=== PATIENT | female | born 1985 | race Caucasian/White ===

== ENCOUNTER 2020-09-16 12:46 | Emergency (ER) | payer MEDICAID ==
[~2020-09-16] VITALS: Ht 157 cm; Wt 68.0 kg
[~2020-09-16 12:46] MED LIST: AC325T PO; CEPH500C PO; CRB200T PO; NITR100C3 PO; PREN-115 PO
--- NOTE | 2020-09-16 13:35 | ED Chest Pain ---
General Chief Complaint: Chest Pain Stated Complaint: COVID +, CP, SORE THROAT Nursing Triage Note: ARRIVED VIA AMB TO ROOM [address] [facility]. TESTED POSTIVE ON 09-07 AND HAS HAD A SORE THROAT AND CHEST PAIN WITH COUGHING SINCE. Nursing Sepsis Screen: No Definite Risk Source: patient Exam Limitations: no limitations History of Present Illness Date Seen by Provider: Sep 16, 2020 Time Seen by Provider: 13:33 Initial Comments Tested positive for Covid on 09/07/2020. Has had sore throat and chest pain since then believes is related to coughing. Timing/Duration: constant Severity/Quality: moderate Radiation: no radiation Activities at Onset: none ASA po FACILITY MAINTENANCE HELPER: No NTG SL FACILITY MAINTENANCE HELPER: No Allergies and Home Medications Allergies Coded Allergies: Penicillins (Unverified Allergy, Unknown, 05/22/13) Patient states she was told to never take it because mother is allergic to it latex (Verified Allergy, 05/10/13) Home Medications No Active Prescriptions or Reported Meds Patient Home Medication List Home Medication List Reviewed: Yes Review of Systems Review of Systems Constitutional: see HPI EENTM: No Symptoms Reported Respiratory: See HPI, Cough Cardiovascular: See HPI, Chest Pain Gastrointestinal: No Symptoms Reported Genitourinary: No Symptoms Reported Musculoskeletal: no symptoms reported Skin: no symptoms reported Psychiatric/Neurological: No Symptoms Reported Endocrine: No Symptoms Reported Hematologic/Lymphatic: No Symptoms Reported Past Mwfyltv-Mrbliz-Knhszr Hx Patient Social History Alcohol Use: Occasionally Uses Smoking Status: Current Everyday Smoker Recent Infectious Disease Expo: No Recent Hopitalizations: No Seasonal Allergies Seasonal Allergies: No Past Medical History Respiratory: No Cardiac: No Neurological: No Seizure Disorder : 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 oz. 86.147482lk; 27.00 BMI Method: General Appearance: No Apparent Distress, WD/WN Respiratory: No Accessory Muscle Use, No Respiratory Distress Gastrointestinal: Normal Bowel Sounds, Non Tender, Soft Extremity: Normal Capillary Refill, Normal Inspection Neurologic/Psychiatric: Alert, Oriented x3 Skin: Normal Color, Warm/Dry Progress/Results/Core Measures Results/Orders Lab Results Laboratory Tests Test 09/16/20 13:23 09/16/20 13:56 Range/Units Group A Streptococcus Screen NEGATIVE NEGATIVE White Blood Count 8.2 4.3-11.0 10^3/uL Red Blood Count 4.90 3.80-5.11 10^6/uL Hemoglobin 14.2 11.5-16.0 g/dL Hematocrit 43 35-52 % Mean Corpuscular Volume 88 80-99 fL Mean Corpuscular Hemoglobin 29 25-34 pg Mean Corpuscular Hemoglobin Concent 33 32-36 g/dL Red Cell Distribution Width 12.3 10.0-14.5 % Platelet Count 281 130-400 10^3/uL Mean Platelet Volume 10.0 9.0-12.2 fL Immature Granulocyte % (Auto) 0 % Neutrophils (%) (Auto) 65 42-75 % Lymphocytes (%) (Auto) 24 12-44 % Monocytes (%) (Auto) 9 0-12 % Eosinophils (%) (Auto) 2 0-10 % Basophils (%) (Auto) 0 0-10 % Neutrophils # (Auto) 5.3 1.8-7.8 10^3/uL Lymphocytes # (Auto) 2.0 1.0-4.0 10^3/uL Monocytes # (Auto) 0.7 0.0-1.0 10^3/uL Eosinophils # (Auto) 0.1 0.0-0.3 10^3/uL Basophils # (Auto) 0.0 0.0-0.1 10^3/uL Immature Granulocyte # (Auto) 0.0 0.0-0.1 10^3/uL D-Dimer <= 0.27 0.00-0.49 UG/ML Sodium Level 141 135-145 MMOL/L Potassium Level 3.7 3.6-5.0 MMOL/L Chloride Level 108 H 98-107 MMOL/L Carbon Dioxide Level 24 21-32 MMOL/L Anion Gap 9 5-14 MMOL/L Blood Urea Nitrogen 9 7-18 MG/DL Creatinine 0.62 0.60-1.30 MG/DL Estimat Glomerular Filtration Rate > 60 BUN/Creatinine Ratio 15 Glucose Level 90 70-105 MG/DL Calcium Level 8.8 8.5-10.1 MG/DL Corrected Calcium 8.5 8.5-10.1 MG/DL Total Bilirubin 0.4 0.1-1.0 MG/DL Aspartate Amino Transf (AST/SGOT) 27 5-34 U/L Alanine Aminotransferase (ALT/SGPT) 33 0-55 U/L Alkaline Phosphatase 41 40-136 U/L C-Reactive Protein High Sensitivity 0.05 0.00-0.50 MG/DL Total Protein 7.7 6.4-8.2 GM/DL Albumin 4.4 3.2-4.5 GM/DL My Orders Orders - WOODROW MURPHY APRN Hs C Reactive Protein (09/16/20 13:31) Fibrin Degradation Products (09/16/20 13:31) Rapid Strep A Screen (09/16/20 13:31) Cbc With Automated Diff (09/16/20 13:31) Comprehensive Metabolic Panel (09/16/20 13:31) Chest 1 View, Ap/Pa Only (09/16/20 13:31) Ekg Tracing (09/16/20 13:31) Vital Signs/I&O 09/16/20 13:15 Temp 37.0 Pulse 93 Resp 16 B/P (MAP) 130/87 (101) Pulse Ox 100 O2 Delivery Room Air Blood Pressure Mean: 101 Departure Impression Primary Impression: COVID-19 Disposition: 01 HOME, SELF-CARE Condition: Stable Departure-Patient Inst. Decision time for Depature: 14:34 Referrals: MACARIO VARELA DO (PCP/Family) Primary Care Physician Patient Instructions: Coronavirus Disease 2019 (COVID-19) ED Add. Discharge Instructions: 1. Return to ER for any worsening. Tylenol and ibuprofen for pain or fever control. All discharge instructions reviewed with patient and/or family. Voiced understanding. Scripts No Active Prescriptions or Reported Meds Work/School Note: Work Release Form Date Seen in the Emergency Department: Sep 16, 2020 WOODROW MURPHY APRN Sep 16, 2020 13:34
[2020-09-16 14:05] LABS: BASOPHILS % (AUTO) 0 % (0-10); EOSINOPHILS # (AUTO) 0.1 10^3/uL (0.0-0.3); EOSINOPHILS % (AUTO) 2 % (0-10); HEMATOCRIT 43 % (35-52); HEMOGLOBIN 14.2 g/dL (11.5-16.0); LYMPHOCYTES % (AUTO) 24 % (12-44); MEAN CORPUSCULAR HEMOGLOBIN 29 pg (25-34); MEAN CORPUSCULAR HGB CONC 33 g/dL (32-36); MEAN CORPUSCULAR VOLUME 88 fL (80-99); MONOCYTES # (AUTO) 0.7 10^3/uL (0.0-1.0); MONOCYTES % (AUTO) 9 % (0-12); NEUTROPHILS # (AUTO) 5.3 10^3/uL (1.8-7.8); NEUTROPHILS % (AUTO) 65 % (42-75); PLATELET COUNT 281 10^3/uL (130-400); WHITE BLOOD COUNT 8.2 10^3/uL (4.3-11.0)
[2020-09-16 14:15] LABS: ALBUMIN 4.4 GM/DL (3.2-4.5); CHLORIDE 108 MMOL/L (98-107); POTASSIUM 3.7 MMOL/L (3.6-5.0); SODIUM 141 MMOL/L (135-145)
--- NOTE | 2020-09-16 14:15 | Diagnostic Imaging Report ---
Indication: Sore throat, chest pain, cough. Findings: No focal infiltrate. The lung volumes normal. There is no failure, effusion or pneumothorax. Impression: Normal frontal chest x-ray. Dictated by: Dictated on workstation # [id number]
[2020-09-16 14:16] LABS: CALCIUM 8.8 MG/DL (8.5-10.1)
[2020-09-16 14:17] LABS: GLUCOSE 90 MG/DL (70-105)
[2020-09-16 14:18] LABS: TOTAL PROTEIN 7.7 GM/DL (6.4-8.2)
[2020-09-16 14:19] LABS: BILIRUBIN,TOTAL 0.4 MG/DL (0.1-1.0); CARBON DIOXIDE 24 MMOL/L (21-32)
[2020-09-16 14:21] LABS: ALKALINE PHOSPHATASE 41 U/L (40-136); CREATININE SERUM 0.62 MG/DL (0.60-1.30); GFR ESTIMATED > 60
[2020-09-16 14:22] LABS: BUN/CREATININE RATIO 15
[2020-09-16 14:24] LABS: ALANINE AMINOTRANSFERASE 33 U/L (0-55)
[2020-09-16 14:45] VITALS: BP 130/87
== END 2020-09-16 14:45 | disposition home or self-care (01) ==
LOC: EDUNIT# 12:46 → ER 12:48
DX: U07.1 COVID-19 (principal); F17.200 Nicotine dependence, unspecified, uncomplicated; Z88.0 Allergy status to penicillin; Z91.040 Latex allergy status
CPT/HCPCS: 36415; 71045; 80053; 85025; 85379; 86141; 87430; 93005

== ENCOUNTER 2021-09-07 19:27 | Emergency (ER) | payer MEDICAID ==
[~2021-09-07] VITALS: Ht 146 cm; Wt 73.0 kg
--- NOTE | 2021-09-07 19:58 | ED General ---
General Chief Complaint: Dizziness/Syncope Stated Complaint: DIZZINESS Source of Information: Patient Exam Limitations: No Limitations (WOODROW MURPHY APRN) History of Present Illness Date Seen by Provider: Sep 07, 2021 Time Seen by Provider: 19:58 Initial Comments To ER with dizziness that began 1 hour prior to arrival. It then developed some nausea. The dizziness is now gone, nausea is improving. She needs a note for work because she works at night. Timing/Duration: 1 Hour Severity: Moderate Associated Systoms: Denies Symptoms (WOODROW MURPHY APRN) Allergies and Home Medications Allergies Coded Allergies: Penicillins (Unverified Allergy, Unknown, 05/22/13) Patient states she was told to never take it because mother is allergic to it latex (Verified Allergy, Unknown, 09/16/20) Patient Home Medication List Home Medication List Reviewed: Yes (WOODROW MURPHY APRN) No Active Prescriptions or Reported Meds Review of Systems Review of Systems Constitutional: see HPI EENTM: see HPI Respiratory: no symptoms reported Cardiovascular: no symptoms reported Genitourinary: no symptoms reported Musculoskeletal: see HPI Skin: no symptoms reported Psychiatric/Neurological: No Symptoms Reported Hematologic/Lymphatic: No Symptoms Reported Immunological/Allergic: no symptoms reported (WOODROW MURPHY APRN) Past Zockflm-Ooursu-Qxmikg Hx Patient Social History Tobacco Use?: Yes Tobacco type used: Cigarettes Smoking Status: Current Everyday Smoker Use of E-Cig and/or Vaping dev: No Substance use?: No Alcohol Use?: Yes Alcohol type: Hard Liquor Alcohol Frequency: Couple times a week Pt feels they are or have been: No (WOODROW MURPHY APRN) Immunizations Up To Date Influenza Vaccine Up-to-Date: Yes; Up-to-Date First/Initial COVID19 Vaccinat: 2020 Second COVID19 Vaccination [place]: 2020 COVID19 Vaccine Shoe Repair Supervisor: MODERNIlir (WOODROW MURPHY APRN) Seasonal Allergies Seasonal Allergies: No (WOODROW MURPHY APRN) Past Medical History Surgery/Hospitalization HX: DENIES Respiratory: No Cardiac: No Neurological: No Seizure Disorder 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 oz. 86.128738zo; 27.00 BMI Method: General Appearance: No Apparent Distress, WD/WN, Other (no nystagmus, ambulates to room 5 without abnormal gait. ) Eyes: Bilateral Eye Normal Inspection, Bilateral Eye PERRL, Bilateral Eye EOMI HEENT: PERRL/EOMI, TMs Normal Neck: Full Range of Motion, Normal Inspection Respiratory: No Accessory Muscle Use, No Respiratory Distress Cardiovascular: Regular Rate, Rhythm, Normal Peripheral Pulses Gastrointestinal: Normal Bowel Sounds, Non Tender, Soft Extremity: Normal Capillary Refill, Normal Inspection Neurologic/Psychiatric: Alert, Oriented x3 Skin: Normal Color, Warm/Dry (WOODROW MURPHY APRN) Progress/Results/Core Measures Suspected Sepsis SIRS Temperature: Pulse: Respiratory Rate: Blood Pressure / Mean: (WOODROW MURPHY APRN) Results/Orders Medications Given in ED Current Medications Medications Dose Ordered Sig/Naina Route Start Time Stop Time Status Last Admin Dose Admin Meclizine HCl 25 mg ONCE ONCE PO 09/07/21 20:00 09/07/21 20:01 DC 09/07/21 20:08 25 MG Ondansetron HCl 4 mg ONCE ONCE PO 09/07/21 20:15 09/07/21 20:16 DC 09/07/21 20:12 4 MG (SHREYAS BOB DO) Vital Signs/I&O 09/07/21 19:37 Temp 36.3 Pulse 79 Resp 18 B/P (MAP) 134/77 (96) Pulse Ox 100 O2 Delivery Room Air (SHREYAS BOB DO) Vital Signs/I&O Capillary Refill : (WOODROW MURPHY APRN) Departure Impression Primary Impression: Dizziness Disposition: 01 HOME, SELF-CARE Condition: Stable Departure-Patient Inst. Decision time for Depature: 19:58 (WOODROW MURPHY APRN) Referrals: MACARIO VARELA DO (PCP/Family) Primary Care Physician Patient Instructions: Dizziness, Adult ED Add. Discharge Instructions: 1. Return to ER for any concerns 2. Follow-up with your doctor next week 3. All discharge instructions reviewed with patient and/or family. Voiced unde rstanding. Scripts No Active Prescriptions or Reported Meds Work/School Note: Work Release Form Date Seen in the Emergency Department: Sep 07, 2021 Return to Work: Sep 08, 2021 ATTENDING PHYSICIAN NOTE: I WAS PHYSICALLY PRESENT ER PHYSICIAN WHEN THIS PATIENT WAS IN ER, BUT I WAS NOT INVOLVED IN ANY DECISION MAKING OR ANY CARE OF THIS PATIENT. (SHREYAS BOB DO) WOODROW MURPHY APRN Sep 07, 2021 19:58 SHREYAS BOB DO Sep 07, 2021 20:23
[2021-09-07] MEDS ORDERED: MECLIZINE 25 MG (ANTIVERT) TAB PO ONE (20:00)
[2021-09-07] MEDS ORDERED: ONDANSETRON 4 MG (ZOFRAN) ORAL DISSOLVE TAB PO ONE (20:15)
[2021-09-07 20:17] VITALS: BP 114/68
== END 2021-09-07 20:18 | disposition home or self-care (01) ==
LOC: EDUNIT# 19:27 → ER 19:28
DX: R42 Dizziness and giddiness (principal); F17.210 Nicotine dependence, cigarettes, uncomplicated; Z91.040 Latex allergy status
CPT/HCPCS: 99283

== ENCOUNTER 2021-11-30 18:44 | Emergency (ER) | payer MEDICAID ==
[~2021-11-30] VITALS: Ht 146 cm; Wt 74.0 kg
[2021-11-30 19:11] VITALS: BP 130/92
--- NOTE | 2021-11-30 19:19 | ED Abdominal Pain ---
General Chief Complaint: Abdominal/GI Problems Stated Complaint: NAUSEOUS Nursing Triage Note: C/O INTERMITTANT NAUSEA TODAY. Source of Information: Patient Exam Limitations: No Limitations History of Present Illness Date Seen by Provider: November 30, 2021 Time Seen by Provider: 19:17 Initial Comments Patient is a 35-year-old female who presents ED with intermittent nausea. Symptoms started this morning. She states she feels nauseous throughout the day. This appears to be intermittent. Not associated with food. She denies of any other complaints such as abdominal pain, chest pain, cough, sore throat, ear pain, vomiting, diarrhea, dysuria, back pain, lower extremity swelling, rash, chest pain, vaginal bleeding, vaginal discharge. She does have a IUD. Not concern for . No urinary symptoms. No known medical problems. She states one of her other children at home came down with a possible GI infection. Patient denies taking medication at home. Allergies and Home Medications Allergies Coded Allergies: Penicillins (Unverified Allergy, Unknown, 05/22/13) Patient states she was told to never take it because mother is allergic to it latex (Verified Allergy, Unknown, 09/16/20) Patient Home Medication List Home Medication List Reviewed: Yes No Active Prescriptions or Reported Meds Review of Systems Review of Systems Constitutional: No chills, No diaphoresis, No fever, No malaise, No weakness EENTM: No Blurred Vision, No Eye Pain Respiratory: Denies Cough, Denies Orthopnea, Denies Shortness of Air Cardiovascular: Denies Chest Pain Gastrointestinal: Denies Abdomen Distended, Denies Abdominal Pain, Denies Constipated, Denies Diarrhea; Nausea; Denies Vomiting Genitourinary: Denies Discharge, Denies Drainage, Denies Frequency Musculoskeletal: No back pain, No joint pain Psychiatric/Neurological: Denies Anxiety, Denies Depressed All Other Systems Reviewed Negative Unless Noted: Yes Past Jhayrcl-Rlncvh-Yilcrf Hx Patient Social History Tobacco Use?: Yes Tobacco type used: Cigarettes Substance use?: No Alcohol Use?: Yes Alcohol Frequency: Once in a while Pt feels they are or have been: No Immunizations Up To Date First/Initial COVID19 Vaccinat: 2020 Second COVID19 Vaccination [place]: 2020 COVID19 Vaccine Yeast Maker: MODERNIlir Seasonal Allergies Seasonal Allergies: No Past Medical History Surgery/Hospitalization HX: DENIES Respiratory: No Cardiac: No Neurological: No Seizure Disorder 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 oz. 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, no motor/sensory deficits, alert, normal mood/affect, oriented x 3 Skin: normal color, warm/dry Progress/Results/Core Measures Results/Orders Lab Results Laboratory Tests Test 11/30/21 19:16 Range/Units Urine Color YELLOW Urine Clarity CLEAR Urine pH 6.5 5-9 Urine Specific [place] <=1.005 1.016-1.022 Urine Protein NEGATIVE NEGATIVE Urine Glucose (UA) NEGATIVE NEGATIVE Urine Ketones NEGATIVE NEGATIVE Urine Nitrite NEGATIVE NEGATIVE Urine Bilirubin NEGATIVE NEGATIVE Urine Urobilinogen 1.0 < = 1.0 MG/DL Urine Leukocyte Esterase NEGATIVE NEGATIVE Urine RBC (Auto) NEGATIVE NEGATIVE Urine RBC 0-2 /HPF Urine WBC 0-2 /HPF Urine Squamous Epithelial Cells 0-2 /HPF Urine Renal Epithelial Cells NONE /HPF Urine Crystals NONE /LPF Urine Leucine Crystals /LPF Urine Bacteria NEGATIVE /HPF Urine Casts NONE /LPF Urine Mucus NEGATIVE /LPF Urine Culture Indicated NO Urine Test NEGATIVE NEGATIVE My Orders Orders - VINEET MCMULLEN Ua Culture If Indicated (11/30/21 19:11) Hcg,Qualitative Urine (11/30/21 19:11) Ondansetron Oral Dissolve Tab (Zofran (11/30/21 19:30) Medications Given in ED Current Medications Medications Dose Ordered Sig/Naina Route Start Time Stop Time Status Last Admin Dose Admin Ondansetron HCl 4 mg ONCE ONCE PO 11/30/21 19:30 11/30/21 19:31 DC 11/30/21 19:22 4 MG Vital Signs/I&O 11/30/21 19:11 Temp 36.2 Pulse 84 Resp 16 B/P (MAP) 130/92 (105) Pulse Ox 99 O2 Delivery Room Air Blood Pressure Mean: 105 Departure Communication (PCP) Patient appears in no acute distress. She has no complaints besides nausea. Exam benign. She was given Zofran. Patient appears well and nontoxic. Stable vital signs. Urinalysis negative for infection and or . Discussed with patient she has no other concerning symptoms or any signs of potential surgical or infectious etiology to distinguish the cause of her nausea. She has been able to eat or drink. Before discharge she was requesting a work note for today. [place] like she was requesting a work note. If any symptoms of chest pain abdominal pain vomiting diarrhea fever or to return back to ED for further evaluation. Impression Primary Impression: Nausea alone Disposition: HOME, SELF-CARE Condition: Stable Departure-Patient Inst. Decision time for Depature: 19:24 Referrals: MACARIO VARELA DO (PCP/Family) Primary Care Physician Patient Instructions: No Instuctions Given Scripts No Active Prescriptions or Reported Meds Work/School Note: Work Release Form Date Seen in the Emergency Department: November 30, 2021 Return to Work: December 01, 2021 VINEET MCMULLEN November 30, 2021 19:19
[2021-11-30 19:25] LABS: BILIRUBIN,URINE NEGATIVE (NEGATIVE); CLARITY,URINE CLEAR; COLOR,URINE YELLOW; GLUCOSE, URINE (UA) NEGATIVE (NEGATIVE); KETONES,URINE NEGATIVE (NEGATIVE); LEUKOCYTE ESTERASE ,URINE NEGATIVE (NEGATIVE); NITRITE,URINE NEGATIVE (NEGATIVE); PH,URINE 6.5 (5-9); PROTEIN,URINE NEGATIVE (NEGATIVE)
[2021-11-30] MEDS ORDERED: ONDANSETRON 4 MG (ZOFRAN) ORAL DISSOLVE TAB PO ONE (19:30)
[2021-11-30 19:34] LABS: BACTERIA,URINE NEGATIVE /HPF; RBC,URINE 0-2 /HPF; SQUAMOUS EPITHELIAL CELL,UR 0-2 /HPF; WBC,URINE 0-2 /HPF
== END 2021-11-30 19:30 | disposition home or self-care (01) ==
LOC: EDUNIT# 18:44 → ER 18:48
DX: R11.0 Nausea (principal); F17.210 Nicotine dependence, cigarettes, uncomplicated; Z97.5 Presence of (intrauterine) contraceptive device; Z32.02 Encounter for pregnancy test, result negative
CPT/HCPCS: 81000; 84703; 99283

== ENCOUNTER 2022-01-17 20:31 | Emergency (ER) | payer MEDICAID ==
[~2022-01-17] VITALS: Ht 146 cm; Wt 81.6 kg
[2022-01-17 20:57] LABS: BILIRUBIN,URINE NEGATIVE (NEGATIVE); CLARITY,URINE CLOUDY; COLOR,URINE YELLOW; GLUCOSE, URINE (UA) NEGATIVE (NEGATIVE); KETONES,URINE NEGATIVE (NEGATIVE); LEUKOCYTE ESTERASE ,URINE NEGATIVE (NEGATIVE); NITRITE,URINE NEGATIVE (NEGATIVE); PROTEIN,URINE NEGATIVE (NEGATIVE)
[2022-01-17 21:04] LABS: BACTERIA,URINE FEW /HPF; WBC,URINE 0-2 /HPF
[2022-01-17 21:08] LABS: AMPHETAMINE SCREEN, URINE NEGATIVE (NEGATIVE); BARBITURATE SCREEN URINE NEGATIVE (NEGATIVE); BENZODIAZEPINES SCREEN URINE NEGATIVE (NEGATIVE); CANNABINOID SCREEN, URINE NEGATIVE (NEGATIVE); COCAINE SCREEN URINE NEGATIVE (NEGATIVE); METHADONE STAT NEGATIVE (NEGATIVE); OPIATE SCREEN URINE NEGATIVE (NEGATIVE); OXYCODONE STAT NEGATIVE (NEGATIVE); PROPOXYPHENE STAT NEGATIVE (NEGATIVE); TRICYCLIC ANTIDEPRESSANTS SCRE NEGATIVE (NEGATIVE)
[2022-01-17 21:16] LABS: BASOPHILS # (AUTO) 0.1 10^3/uL (0.0-0.1); BASOPHILS % (AUTO) 1 % (0-10); MEAN PLATELET VOLUME 10.5 fL (9.0-12.2)
[2022-01-17 21:18] LABS: EOSINOPHILS # (AUTO) 0.2 10^3/uL (0.0-0.3); EOSINOPHILS % (AUTO) 2 % (0-10); HEMATOCRIT 38 % (35-52); HEMOGLOBIN 12.7 g/dL (11.5-16.0); LYMPHOCYTES # (AUTO) 3.5 10^3/uL (1.0-4.0); LYMPHOCYTES % (AUTO) 29 % (12-44); MEAN CORPUSCULAR HEMOGLOBIN 29 pg (25-34); MEAN CORPUSCULAR HGB CONC 33 g/dL (32-36); MEAN CORPUSCULAR VOLUME 85 fL (80-99); MONOCYTES # (AUTO) 0.8 10^3/uL (0.0-1.0); MONOCYTES % (AUTO) 7 % (0-12); NEUTROPHILS # (AUTO) 7.4 10^3/uL (1.8-7.8); NEUTROPHILS % (AUTO) 62 % (42-75); PLATELET COUNT 265 10^3/uL (130-400)
[2022-01-17 21:30] LABS: ALBUMIN 3.8 GM/DL (3.2-4.5); POTASSIUM 3.5 MMOL/L (3.6-5.0)
[2022-01-17 21:31] LABS: CALCIUM 8.9 MG/DL (8.5-10.1)
[2022-01-17 21:32] LABS: TOTAL PROTEIN 6.9 GM/DL (6.4-8.2)
[2022-01-17 21:34] LABS: BILIRUBIN,TOTAL 0.3 MG/DL (0.1-1.0)
[2022-01-17 21:36] LABS: CREATININE SERUM 0.68 MG/DL (0.60-1.30)
--- NOTE | 2022-01-17 21:42 | ED Abdominal Pain ---
General Chief Complaint: Abdominal/GI Problems Stated Complaint: STOMACH PAIN Nursing Triage Note: PT AMBULATORY TO ROOM. 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 PT STATES THE HEADACHE IS NOT OUT OF THE USUAL FOR HER. PT DESCRIBES ABD PAIN A MILD CRAMPY FEELING Source of Information: Patient History of Present Illness Date Seen by Provider: Jan 17, 2022 Time Seen by Provider: 20:43 Initial Comments PT ARRIVES VIA POV FROM HOME STATES 35 MINUTES AGO, SHE BEGAN HAVING UPPER ABDOMINAL CRAMPING--RATES PAIN 6/10 SHE ALSO DEVELOPED A HEADACHE AT THE SAME TIME--RATES THIS PAIN 5/10--HAS FREQUENT HEADACHES AND THIS IS NO DIFFERENT THAN NORMAL HAS SLIGHT NAUSEA, NO VOMITING HAD NORMAL BM YESTERDAY, NO BM TODAY. NO FEVER ATE DINNER AROUND [phone]--[employer], AND [employer]. WENT FOR SHORT WALK AND WHEN SHE FINISHED HER WALK SHE STARTED HAVING THESE SYMPTOMS SO CAME STRAIGHT HERE HAS NOT TAKEN ANYTHING FOR HER SYMPTOMS WANTING A DR'S NOTE FOR WORK SOON SHE ARRIVES--SUPPOSED TO WORK [employer]. NO HISTORY OF SIMILAR NO PRIOR GI, OR OR FILM HISTORIAN PROBLEMS OR SURGERIES NO CHRONIC ILLNESSES AND DOES NOT TAKE ANY DAILY MEDICATIONS FORMER SMOKER, RARE ETOH ( NONE RECENTLY) AND NO DRUG USE LMP--8 YEARS AGO, HAS IUD IN PLACE SINCE THEN PT HAS HAD COVID-19 VACCINE X 2, FLU VACCINE X 1 PCP: [facility] Allergies and Home Medications Allergies Coded Allergies: Penicillins (Unverified Allergy, Unknown, 05/22/13) Patient states she was told to never take it because mother is allergic to it latex (Verified Allergy, Unknown, 09/16/20) Patient Home Medication List Home Medication List Reviewed: Yes No Active Prescriptions or Reported Meds Review of Systems Review of Systems Constitutional: no symptoms reported EENTM: No Symptoms Reported Respiratory: No Symptoms Reported Cardiovascular: No Symptoms Reported Gastrointestinal: See HPI, Abdominal Pain; Denies Constipated, Denies Diarrhea; Nausea; Denies Vomiting Genitourinary: No Symptoms Reported Musculoskeletal: no symptoms reported Skin: no symptoms reported Psychiatric/Neurological: See HPI Endocrine: No Symptoms Reported Hematologic/Lymphatic: No Symptoms Reported Past Kdqauww-Zrzlfd-Kirvvb Hx Patient Social History Tobacco Use?: Yes Smoking Status: Former Smoker Use of E-Cig and/or Vaping dev: No Substance use?: No Alcohol Use?: Yes Alcohol Frequency: Once in a while Immunizations Up To Date Influenza Vaccine Up-to-Date: Yes; Up-to-Date First/Initial COVID19 Vaccinat: 2020 Second COVID19 Vaccination [place]: 2020 Seasonal Allergies Seasonal Allergies: No Past Medical History Surgery/Hospitalization HX: DENIES Surgeries: No Respiratory: No Cardiac: No Neurological: No : No 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 oz. 86.396206kp; 38.00 BMI Method: General Appearance: WD/WN, no apparent distress, obese, other (WALKS UPRIGHT AND MOVES QUICKLY WITHOUT DIFFICULTY. DOES NOT APPEAR TO BE ILL OR IN ANY DISCOMFORT OR DISTRESS. PLAYING/TEXTING ON PHONE) HEENT: PERRL/EOMI, normal ENT inspection, TMs normal, pharynx normal Neck: non-tender, full range of motion, supple, normal inspection Respiratory: normal breath sounds, no respiratory distress, no accessory muscle use Cardiovascular: regular rate, rhythm, no murmur Gastrointestinal: normal bowel sounds, soft, no organomegaly, no pulsatile mass; No distended, No guarding, No rebound; tenderness (VERY MINIMAL PERIUMBILICAL TENDERNESS. 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, no motor/sensory deficits, alert, normal mood/affect, oriented x 3 Skin: normal color, warm/dry Progress/Results/Core Measures Results/Orders Lab Results Laboratory Tests Test 01/17/22 20:55 01/17/22 21:14 Range/Units Urine Color YELLOW Urine Clarity CLOUDY Urine pH 6.0 5-9 Urine Specific [place] 1.020 1.016-1.022 Urine Protein NEGATIVE NEGATIVE Urine Glucose (UA) NEGATIVE NEGATIVE Urine Ketones NEGATIVE NEGATIVE Urine Nitrite NEGATIVE NEGATIVE Urine Bilirubin NEGATIVE NEGATIVE Urine Urobilinogen 1.0 < = 1.0 MG/DL Urine Leukocyte Esterase NEGATIVE NEGATIVE Urine RBC (Auto) NEGATIVE NEGATIVE Urine RBC NONE /HPF Urine WBC 0-2 /HPF Urine Squamous Epithelial Cells 5-10 /HPF Urine Renal Epithelial Cells NONE /HPF Urine Crystals NONE /LPF Urine Bacteria FEW H /HPF Urine Casts NONE /LPF Urine Mucus NEGATIVE /LPF Urine Culture Indicated NO Urine Opiates Screen NEGATIVE NEGATIVE Urine Oxycodone Screen NEGATIVE NEGATIVE Urine Methadone Screen NEGATIVE NEGATIVE Urine Propoxyphene Screen NEGATIVE NEGATIVE Urine Barbiturates Screen NEGATIVE NEGATIVE Ur Tricyclic Antidepressants Screen NEGATIVE NEGATIVE Urine Phencyclidine Screen NEGATIVE NEGATIVE Urine Amphetamines Screen NEGATIVE NEGATIVE Urine Methamphetamines Screen NEGATIVE NEGATIVE Urine Benzodiazepines Screen NEGATIVE NEGATIVE Urine Cocaine Screen NEGATIVE NEGATIVE Urine Cannabinoids Screen NEGATIVE NEGATIVE White Blood Count 12.0 H 4.3-11.0 10^3/uL Red Blood Count 4.46 3.80-5.11 10^6/uL Hemoglobin 12.7 11.5-16.0 g/dL Hematocrit 38 35-52 % Mean Corpuscular Volume 85 80-99 fL Mean Corpuscular Hemoglobin 29 25-34 pg Mean Corpuscular Hemoglobin Concent 33 32-36 g/dL Red Cell Distribution Width 12.8 10.0-14.5 % Platelet Count 265 130-400 10^3/uL Mean Platelet Volume 10.5 9.0-12.2 fL Immature Granulocyte % (Auto) 0 % Neutrophils (%) (Auto) 62 42-75 % Lymphocytes (%) (Auto) 29 12-44 % Monocytes (%) (Auto) 7 0-12 % Eosinophils (%) (Auto) 2 0-10 % Basophils (%) (Auto) 1 0-10 % Neutrophils # (Auto) 7.4 1.8-7.8 10^3/uL Lymphocytes # (Auto) 3.5 1.0-4.0 10^3/uL Monocytes # (Auto) 0.8 0.0-1.0 10^3/uL Eosinophils # (Auto) 0.2 0.0-0.3 10^3/uL Basophils # (Auto) 0.1 0.0-0.1 10^3/uL Immature Granulocyte # (Auto) 0.0 0.0-0.1 10^3/uL Percent Immature Platelet Fraction 6.2 0.0-7.6 % Sodium Level 140 135-145 MMOL/L Potassium Level 3.5 L 3.6-5.0 MMOL/L Chloride Level 106 98-107 MMOL/L Carbon Dioxide Level 22 21-32 MMOL/L Anion Gap 12 5-14 MMOL/L Blood Urea Nitrogen 9 7-18 MG/DL Creatinine 0.68 0.60-1.30 MG/DL Estimat Glomerular Filtration Rate 117 BUN/Creatinine Ratio 13 Glucose Level 98 70-105 MG/DL Calcium Level 8.9 8.5-10.1 MG/DL Corrected Calcium 9.1 8.5-10.1 MG/DL Total Bilirubin 0.3 0.1-1.0 MG/DL Aspartate Amino Transf (AST/SGOT) 14 5-34 U/L Alanine Aminotransferase (ALT/SGPT) 11 0-55 U/L Alkaline Phosphatase 45 40-136 U/L Total Protein 6.9 6.4-8.2 GM/DL Albumin 3.8 3.2-4.5 GM/DL Amylase Level 66 25-125 U/L Lipase 40 8-78 U/L My Orders Orders - SHREYAS BOB DO Ed Iv/Invasive Line Start (01/17/22 20:46) Urine Bedside (01/17/22 20:46) Amylase (01/17/22 20:46) Cbc With Automated Diff (01/17/22 20:46) Comprehensive Metabolic Panel (01/17/22 20:46) Drug Screen Stat (Urine) (01/17/22 20:46) Lipase (01/17/22 20:46) Ua Culture If Indicated (01/17/22 20:46) Ct Abdomen/Pelvis Wo (01/17/22 21:28) Vital Signs/I&O 01/17/22 01/17/22 20:39 22:24 Temp 36.5 Pulse 88 77 Resp 18 B/P (MAP) 118/85 (96) 135/85 Pulse Ox 98 99 Blood Pressure Mean: 96 Progress Progress Note : Progress Note UNEVENTFUL ER STAY SYMPTOMS RESOLVED WITHOUT TREATMENT SHORTLY AFTER ARRIVAL Diagnostic Imaging Comments CT ABDOMEN/PELVIS--PER RADIOLOGIST REPORT AT 2215 FINDINGS: The lungs appear clear. The nonopacified liver and spleen unremarkable. The adrenal glands and pancreas appear unremarkable. There are multiple large stones within the gallbladder with question of mild gallbladder wall thickening better characterized sonographically. There is no nephrolithiasis or hydronephrosis. There are no ureteral stones. The appendix is normal. There is no ascites. No free air. There are findings of moderate constipation with a nonobstructive bowel gas pattern. Mild diverticular disease is noted without evidence for diverticulitis. There is a small fat-containing umbilical hernia. There is no acute osseous abnormality. IUD noted in the uterus. IMPRESSION: 1. Large stones within the gallbladder with question of gallbladder wall thickening. Sonographic characterization could provide better evaluation, as clinically warranted. 2. Findings of constipation. 3. Otherwise incidental findings, as above. Reviewed: Reviewed by Me Departure Impression Primary Impression: Cholelithiasis Disposition: HOME, SELF-CARE Condition: Improved Departure-Patient Inst. Decision time for Depature: 22:15 Referrals: MARCELINO KINGSTON ANGELA C DO (PCP/Family) Primary Care Physician Patient Instructions: Gallbladder Diet, Gallstones ED Add. Discharge Instructions: TYLENOL AND MOTRIN NEEDED FOR PAIN FOLLOW UP WITH DR. KINGSTON, SURGEON, THIS WEEK FOR FURTHER CARE RETURN TO ER IF SYMPTOMS WORSEN All discharge instructions reviewed with patient and/or family. Voiced understanding. Scripts No Active Prescriptions or Reported Meds Work/School Note: School/Childcare Release Date Seen in the Emergency Department: Jan 17, 2022 SHREYAS BOB DO Jan 17, 2022 21:42
--- NOTE | 2022-01-17 22:14 | Diagnostic Imaging Report ---
PROCEDURE: CT abdomen and pelvis without contrast, 01/17/2022. TECHNIQUE: Multiple contiguous axial images were obtained through the abdomen and pelvis without the use of intravenous contrast. Auto Exposure Controls were utilized during the CT exam to meet ALARA standards for radiation dose reduction. INDICATION: Upper abdominal pain and headaches. Negative test. FINDINGS: The lungs appear clear. The nonopacified liver and spleen unremarkable. The adrenal glands and pancreas appear unremarkable. There are multiple large stones within the gallbladder with question of mild gallbladder wall thickening better characterized sonographically. There is no nephrolithiasis or hydronephrosis. There are no ureteral stones. The appendix is normal. There is no ascites. No free air. There are findings of moderate constipation with a nonobstructive bowel gas pattern. Mild diverticular disease is noted without evidence for diverticulitis. There is a small fat-containing umbilical hernia. There is no acute osseous abnormality. IUD noted in the uterus. IMPRESSION: 1. Large stones within the gallbladder with question of gallbladder wall thickening. Sonographic characterization could provide better evaluation, as clinically warranted. 2. Findings of constipation. 3. Otherwise incidental findings, as above. Dictated by: Dictated on workstation # [id number]
[2022-01-17 22:24] VITALS: BP 135/85
== END 2022-01-17 22:27 | disposition home or self-care (01) ==
LOC: EDUNIT# 20:31 → ER 20:33
DX: K80.20 Calculus of gallbladder without cholecystitis without obstruction (principal); E66.9 Obesity, unspecified; Z87.891 Personal history of nicotine dependence; Z91.040 Latex allergy status; Z68.38 Body mass index [BMI] 38.0-38.9, adult; Z28.311 Partially vaccinated for COVID-19
CPT/HCPCS: 36415; 74176; 80053; 80306; 81000; 82150; 83690; 84703; 85025

== ENCOUNTER 2022-03-22 19:59 | Emergency (ER) | payer MEDICAID ==
[~2022-03-22] VITALS: Ht 147.3 cm; Wt 70.3 kg
--- NOTE | 2022-03-22 20:49 | ED Back Pain ---
General Chief Complaint: Back Problems Stated Complaint: LOWER BACK PAIN Source of Information: Patient History of Present Illness Date Seen by Provider: Mar 22, 2022 Time Seen by Provider: 20:33 Initial Comments PT ARRIVES VIA POV FROM HOME C/O LOW BACK ACHE C/O CHILLS--HAS NOT CHECKED TEMP C/O NAUSEA, NO VOMITING. NO ABDOMINAL PAIN, NO DIARRHEA SYMPTOMS BEGAN TODAY NO COUGH OR URI SYMPTOMS NO URINARY SYMPTOMS LMP--8 YEARS AGO, HAS IUD IN PLACE HAS NOT TAKEN ANYTHING FOR PAIN PT HAS HAD COVID VACCINE X 3--LAST ONE > 6 MONTHS AGO. ON ER VISIT IN DECEMBER OF THIS YEAR, PT REPORTED SHE ONLY HAD 2 COVID VACCINES--OVER A YEAR AGO Other Comments PCP: [facility] Allergies and Home Medications Allergies Coded Allergies: Penicillins (Unverified Allergy, Unknown, 05/22/13) Patient states she was told to never take it because mother is allergic to it latex (Verified Allergy, Unknown, 09/16/20) Patient Home Medication List Home Medication List Reviewed: Yes Nitrofurantoin Monohyd/M-Cryst (Macrobid 100 mg Capsule) 100 Mg Capsule, 1 TAB PO BID Prescribed by: SHREYAS BOB on 03/22/222147 Review of Systems Constitutional: see HPI, chills Respiratory: no symptoms reported Cardiovascular: no symptoms reported Gastrointestinal: see HPI; No abdominal pain, No diarrhea; nausea; No vomiting Genitourinary: no symptoms reported : No Control/STD Prophylaxis: IUD Musculoskeletal: see HPI, back pain Skin: no symptoms reported Psychiatric/Neurological: No Symptoms Reported Past Ugrpgfa-Laumbe-Ogndbz Hx Patient Social History Tobacco Use?: Yes Tobacco type used: Cigarettes Smoking Status: Former Smoker Substance use?: No Alcohol Use?: Yes Alcohol Frequency: Once in a while Immunizations Up To Date First/Initial COVID19 Vaccinat: 2020 Second COVID19 Vaccination [place]: 2020 Seasonal Allergies Seasonal Allergies: No Past Medical History Surgery/Hospitalization HX: DENIES Surgeries: No Respiratory: No Cardiac: No Neurological: No : No Reproductive Disorders: 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 oz. 86.317560nz; 38.00 BMI Method: General Appearance: No Apparent Distress, WD/WN, Other (WALKS UPRIGHT AND MOVES WITHOUT DIFFICULTY ; DOES NOT APPEAR ILL OR TO BE IN ANY DISCOMFORT OR DISTRESS) HEENT: PERRL/EOMI, TMs Normal, Normal ENT Inspection, Pharynx Normal Neck: Full Range of Motion, Normal Inspection, Non Tender, Supple Cardiovascular: Regular Rate, Rhythm, No Edema, No JVD, No Murmur, Normal Peripheral Pulses Respiratory: Normal Breath Sounds, No Accessory Muscle Use, No Respiratory Distress Gastrointestinal: Normal Bowel Sounds, No Organomegaly, Non Tender, Soft Back: Normal Inspection, No CVA Tenderness, No Vertebral Tenderness Extremity: Normal Capillary Refill, Normal Inspection, Normal Range of Motion, Non Tender, No Calf Tenderness, No Pedal Edema Neurologic/Psychiatric: Alert, Oriented x3, No Motor/Sensory Deficits, Normal 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, 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 Skin: Normal Color, Warm/Dry; No Rash Progress/Results/Core Measures Results/Orders Lab Results Laboratory Tests Test 03/22/22 20:46 03/22/22 21:16 Range/Units Urine Color YELLOW Urine Clarity SL CLOUDY Urine pH 6.5 5-9 Urine Specific [place] 1.020 1.016-1.022 Urine Protein NEGATIVE NEGATIVE Urine Glucose (UA) NEGATIVE NEGATIVE Urine Ketones NEGATIVE NEGATIVE Urine Nitrite NEGATIVE NEGATIVE Urine Bilirubin NEGATIVE NEGATIVE Urine Urobilinogen 4.0 < = 1.0 MG/DL Urine Leukocyte Esterase NEGATIVE NEGATIVE Urine RBC (Auto) NEGATIVE NEGATIVE Urine RBC NONE /HPF Urine WBC RARE /HPF Urine Squamous Epithelial Cells 5-10 /HPF Urine Crystals NONE /LPF Urine Bacteria FEW H /HPF Urine Casts NONE /LPF Urine Mucus NEGATIVE /LPF Urine Culture Indicated YES Urine Test NEGATIVE NEGATIVE Influenza Type A (RT-PCR) Not Detected Not Detecte Influenza Type B (RT-PCR) Not Detected Not Detecte SARS-CoV-2 RNA (RT-PCR) Detected H Not Detecte My Orders Orders - SHREYAS BOB DO Hcg,Qualitative Urine (03/22/22 20:44) Ua Culture If Indicated (03/22/22 20:44) Covid 19 Inhouse Test (03/22/22 20:44) Influenza A And B By Pcr (03/22/22 20:44) Isolation Central Supply Req (03/22/22 20:44) Urine Culture (03/22/22 20:46) Vital Signs/I&O 03/22/22 03/22/22 20:44 22:10 Temp 37.1 Pulse 77 73 Resp 18 18 B/P (MAP) 127/86 (100) 121/83 Pulse Ox 100 99 O2 Delivery Room Air Room Air Progress Progress Note : Progress Note PLACED IN ISOLATION ROOM PPE WORN COVID AND FLU TESTING DONE NO COUGH NO DYSPNEA NO HYPOXIA NO FEVER DURING ER STAY ANTICIPATED COURSE DISCUSSED PT IS NOT A CANDIDATE FOR ANY TREATMENT AT THIS TIME. Departure Impression Primary Impression: COVID-19 virus infection Additional Impression: UTI (urinary tract infection) Disposition: 01 HOME, SELF-CARE Condition: Stable Departure-Patient Inst. Decision time for Depature: 21:43 Referrals: [facility] Patient Instructions: COVID-19 (DC), Preventing the Spread of an Infectious Disease, Urinary Tract Infections in Adults Add. Discharge Instructions: QUARANTINE FOR 10 DAYS TYLENOL AND MOTRIN NEEDED FOR PAIN OR FEVER OVER THE COUNTER MEDICATIONS NEEDED FOR COUGH/CONGESTION FOLLOW UP WITH [facility] IF PROBLEMS All discharge instructions reviewed with patient and/or family. Voiced understanding. Scripts Nitrofurantoin Monohyd/M-Cryst (Macrobid 100 mg Capsule) 100 Mg Capsule 1 TAB PO BID, #20 CAP Prov: SHREYAS BOB DO 03/22/22 SHREYAS BOB DO Mar 22, 2022 20:49
[2022-03-22 20:50] LABS: BILIRUBIN,URINE NEGATIVE (NEGATIVE); CLARITY,URINE SL CLOUDY; COLOR,URINE YELLOW; GLUCOSE, URINE (UA) NEGATIVE (NEGATIVE); KETONES,URINE NEGATIVE (NEGATIVE); LEUKOCYTE ESTERASE ,URINE NEGATIVE (NEGATIVE); NITRITE,URINE NEGATIVE (NEGATIVE); PH,URINE 6.5 (5-9); PROTEIN,URINE NEGATIVE (NEGATIVE)
[2022-03-22 21:12] LABS: BACTERIA,URINE FEW /HPF; WBC,URINE RARE /HPF
[2022-03-22] MEDS ORDERED: NITR-65 PO (21:48)
[2022-03-22 22:10] VITALS: BP 121/83
== END 2022-03-22 22:15 | disposition home or self-care (01) ==
LOC: EDUNIT# 19:59 → ER 20:00
DX: U07.1 COVID-19 (principal); N39.0 Urinary tract infection, site not specified; F17.210 Nicotine dependence, cigarettes, uncomplicated; Z91.040 Latex allergy status
CPT/HCPCS: 81000; 84703; 87088; 87636; 99283